=== PATIENT | female | born 1995 | race African-American/Black ===

== ENCOUNTER 2021-02-23 16:36 | Emergency (ER) | payer BC, OTHER ==
[2021-02-23 18:18] LABS: Bilirubin Neg (Negative); Blood, Urine 25 (Negative); Clarity Clear (Clear); Glucose, Urine (Dipstick) Normal (Negative); Ketone, Urine Negative (Negative); Leukocyte 25 (Negative); Nitrite Negative (Negative); Protein, Urine (Dipstick) 15 mg/dl (Neg-Trace); Specific Gravity, Urine 1.025 (1.002-1.036); Urobilinogen Normal mg/dL (Less than 2)
[2021-02-23 18:21] LABS: Pregnancy Test - Urine (BHCG) Negative (Negative); Pregu Control Background? CLEAR/WHITE (CLR/WHITE); Pregu Control Bar Appear? YES (CONTROL BAR); Specific Gravity 1.025 (1.002-1.036)
[2021-02-23 18:34] LABS: Bacteria/HPF 1+ HPF (None Seen); Mucous/LPF 2+ LPF (<2+); Squamous Epithelial 0-3 HPF (0-3)
== END 2021-02-23 19:51 | disposition home or self-care (01) ==
LOC: CSHERS 16:36
DX: R11.2 Nausea with vomiting, unspecified (principal); R19.7 Diarrhea, unspecified
CPT/HCPCS: 81003; 81015; 81025; 87086; 99284

== ENCOUNTER 2021-08-07 09:34 | Emergency (ER) | payer BC, OTHER ==
[2021-08-08 12:38] LABS: SARS-CoV-2 PCR by NAA DETECTED (NotDetected)
== END 2021-08-07 12:44 | disposition home or self-care (01) ==
LOC: CSHERS 09:34
DX: U07.1 COVID-19 (principal); J30.9 Allergic rhinitis, unspecified
CPT/HCPCS: 99283; U0003; U0005

== ENCOUNTER 2022-10-08 18:05 | Emergency (ER) | payer OTHER | END 2022-10-08 22:06 | disposition left against medical advice (07) | LOC: CSHERS 18:05 | DX: Z53.21 Procedure and treatment not carried out due to patient leaving prior to being seen by health care provider (principal) ==

== ENCOUNTER 2022-11-18 23:20 | Emergency (ER) | payer OTHER ==
[2022-11-19 00:55] LABS: #Eosinphils 0.1 10x3/uL (0.0-0.5); #Monocytes 0.4 10x3/uL (0.0-1.1); #Neutrophils 6.4 10x3/uL (1.5-8.4); %Basophils 0.2 % (0.0-2.0); %Eosinophils 0.6 % (0.0-6.0); %Monocytes 4.3 % (0.0-10.0); %Neutrophils 74.7 % (40.0-75.0); Hemoglobin 12.4 g/dL (12.0-15.5); Mean Corpuscular HGB CONC 32.1 g/dL (32.0-36.0); Mean Corpuscular Hemoglobin 25.7 pg (27.0-33.0); Mean Corpuscular Volume 80.1 fl (81.6-98.3); Mean Platelet Volume 9.8 fl (7.4-10.4); Platelet Count 321 10x3/uL (150-450); RBC Distribution Width 14.1 % (11.5-14.5); Red Blood Cell (RBC) Count 4.82 10x6/uL (3.90-5.03); White Blood Cell (WBC) Count 8.6 10x3/uL (3.5-10.5)
[2022-11-19 01:04] LABS: Amphetamine Not Detected (NotDetected); Barbiturates Screen Not Detected (NotDetected); Benzodiazepine Screen Not Detected (NotDetected); Bilirubin 1+ (Negative); Blood, Urine 150 (Negative); Cocaine Metabolite Screen Not Detected (NotDetected); Glucose, Urine (Dipstick) Normal (Negative); Ketone, Urine 15 mg/dL (Negative); Leukocyte 25 (Negative); Methadone Not Detected (NotDetected); Methamphetamine Not Detected (NotDetected); Nitrite Negative (Negative); Opiate Screen Not Detected (NotDetected); Oxycodone Screen Not Detected (NotDetected); Phencyclidine (PCP) Not Detected (NotDetected); Protein, Urine (Dipstick) 30 mg/dl (Neg-Trace); THC/Cannabinoid Screen Not Detected (NotDetected); Tricyclic Screen Not Detected (NotDetected)
[2022-11-19 01:05] LABS: Clarity Slightly Cloudy (Clear)
[2022-11-19 01:06] LABS: Bacteria/HPF 2+ HPF (None Seen); RBC/HPF 0-3 HPF (0-3)
[2022-11-19 01:08] LABS: Pregnancy Test - Urine (BHCG) Negative (Negative)
[2022-11-19 01:09] LABS: Pregu Control Background? CLEAR/WHITE (CLR/WHITE); Pregu Control Bar Appear? YES (CONTROL BAR)
[2022-11-19 01:13] LABS: ALT (SGPT) 17 U/L (8-55); AST (SGOT) 15 U/L (5-34); Acetaminophen Less than 10.0 mcg/mL (10.0-30.0); Albumin 4.1 g/dL (3.5-5.0); Alcohol Less than 10 mg/dL (Less than 10); Alkaline Phosphatase 92 U/L (40-110); Anion Gap 12 mmol/L (10-20); BUN (Urea Nitrogen) 7 mg/dL (7.0-18.7); Bilirubin, Total 0.3 mg/dL (0.2-1.2); Calc. Creatinine Clearance 0 mL/min (70-130); Calcium 9.4 mg/dL (7.8-10.44); Carbon Dioxide 24 mmol/L (22-29); Chloride 108 mmol/L (98-107); Estimated GFR 95; Globulin 3.7 g/dL (2.4-3.5); Glucose 105 mg/dL (70-105); Potassium 3.8 mmol/L (3.5-5.1); Protein, Total 7.8 g/dL (6.0-8.3); Salicylate Less than 8.0 mg/dL (15.0-30.0); Sodium 140 mmol/L (136-145)
== END 2022-11-19 10:14 | disposition home or self-care (01) ==
LOC: CSHERS 23:20
DX: T45.4X2A Poisoning by iron and its compounds, intentional self-harm, initial encounter (principal)
CPT/HCPCS: 36415; 80053; 80306; 80307; 81003; 81015; 81025; 83540; 85025; 93005

== ENCOUNTER 2024-03-03 08:13 | Day surgery (SDC) | payer OTHER, MEDICAID ==
[2024-03-03] MEDS ORDERED: hydrALAZINE 20 MG/ML VIAL SLOW IVP PRN (08:52)
[2024-03-03 14:56] LABS: Bilirubin Neg (Negative); Blood, Urine 10 (Negative); Clarity Clear (Clear); Glucose, Urine (Dipstick) Normal (Negative); Ketone, Urine Negative (Negative); Leukocyte Negative (Negative); Nitrite Negative (Negative); Protein, Urine (Dipstick) Negative (Neg-Trace); Specific Gravity, Urine 1.015 (1.005-1.030); Urobilinogen Normal mg/dL (Less than 2); pH, Urine 6.5 (5.0-9.0)
[2024-03-03 15:39] LABS: Bacteria/HPF None Seen HPF (None Seen); CAUTI Indications for Culture Pregnancy; RBC/HPF 0-3 HPF (0-3); Squamous Epithelial 0-3 HPF (0-3); WBC/HPF 0-3 HPF (0-3)
[2024-03-03 15:40] LABS: Urine Culture Reflex Yes Yes
== END 2024-03-03 09:48 | disposition home or self-care (01) ==
LOC: CSHLD/OP 08:13
PROVIDERS: ATTEND Family Medicine
DX: O99.891 Other specified diseases and conditions complicating pregnancy (principal); M54.50 Low back pain, unspecified; O34.211 Maternal care for low transverse scar from previous cesarean delivery; O00.01 Abdominal pregnancy with intrauterine pregnancy; Z79.899 Other long term (current) drug therapy; Z3A.23 23 weeks gestation of pregnancy
CPT/HCPCS: 81001; 87086; 99283

== ENCOUNTER 2024-06-01 12:26 | Day surgery (SDC) | payer OTHER ==
[2024-06-01] MEDS ORDERED: hydrALAZINE 20 MG/ML VIAL SLOW IVP PRN (13:30)
[2024-06-01 13:55] LABS: Fetal Membranes Rupture No Membranes Rupture (No Rupture)
== END 2024-06-01 16:58 | disposition home or self-care (01) ==
LOC: CSHERS 12:26
PROVIDERS: ATTEND Family Medicine
DX: O47.03 False labor before 37 completed weeks of gestation, third trimester (principal); Z3A.36 36 weeks gestation of pregnancy; O34.211 Maternal care for low transverse scar from previous cesarean delivery; O98.813 Other maternal infectious and parasitic diseases complicating pregnancy, third trimester; B37.31 Acute candidiasis of vulva and vagina; Z03.71 Encounter for suspected problem with amniotic cavity and membrane ruled out
CPT/HCPCS: 76819; 84112; 87480; 87510; 87660; 99284

== ENCOUNTER 2024-06-03 19:32 | Inpatient (IN) | payer OTHER ==
[2024-06-03 19:45] VITALS: BMI 45.9
[2024-06-03] MEDS ORDERED: hydrALAZINE 20 MG/ML VIAL SLOW IVP PRN ×2 (19:52→21:51)
[2024-06-03 20:33] LABS: Fetal Membranes Rupture RUPTURE DETECTED (No Rupture)
[2024-06-03] MEDS ORDERED: Bicitra 30 ML UDCUP PO PRN (21:51)
[2024-06-03] MEDS ORDERED: Methylergonovine 0.2 MG/ML VIAL IM PRN (21:51)
[2024-06-03] MEDS ORDERED: Tranexamic Acid 1,000 MG/10 ML VIAL IVP PRN (21:51)
[2024-06-03] MEDS ORDERED: Ondansetron PF 4 MG/2 ML Vial IVP PRN ×3 (21:51→21:58)
[2024-06-03] MEDS ORDERED: Diphenoxylate HCl/Atropine Tablet PO PRN (21:51)
[2024-06-03] MEDS ORDERED: Promethazine HCl 25 MG/ML VIAL IM PRN ×2 (21:51→21:58)
[2024-06-03] MEDS ORDERED: Misoprostol 200 MCG TAB PR PRN (21:51)
[2024-06-03] MEDS ORDERED: Carboprost 250 MCG/ML AMP IM PRN (21:51)
[2024-06-03] MEDS ORDERED: Famotidine/PF 20 mg/2ml Vial SLOW IVP PRN (21:51)
[2024-06-03] MEDS ORDERED: Meperidine HCl/PF 25 MG (1 mL) VIAL SLOW IVP PRN (21:58)
[2024-06-03] MEDS ORDERED: Naloxone HCl 0.4 mg/ml Vial IV PRN (21:58)
[2024-06-03] MEDS ORDERED: Naloxone HCl 0.4 mg/ml Vial IVP PRN ×2 (21:58)
[2024-06-03] MEDS ORDERED: fentaNYL 50 mcg/mL 1 mL Vial SLOW IVP PRN (21:58)
[2024-06-03] MEDS ORDERED: Moisturizing Cream (Eucerin) 113 GM JAR TOP PRN (21:58)
[2024-06-03] MEDS ORDERED: Morphine 4 MG/ML VIAL SLOW IVP PRN (21:58)
[2024-06-03] MEDS ORDERED: Azithromycin 500 MG in Sodium Chloride 0.9% 250 ML 250 ML IVPB SCH (22:00)
[2024-06-03] MEDS ORDERED: Ketorolac Tromethamine 30 MG (1 mL) VIAL IVP SCH (22:00)
[2024-06-03] MEDS ORDERED: Oxytocin 30 units/NS 500 ML 500 ML IV SCH (22:00)
[2024-06-03] MEDS ORDERED: Communication Order-Pharmacy FS SCH (22:00)
[2024-06-03] MEDS ORDERED: CEFAZOLIN 2 GM in Sodium Chloride 0.9% 100 ML IVPB SCH (22:00)
[2024-06-03 22:14] LABS: Hematocrit 34.3 % (34.9-44.5); Hemoglobin 11.2 g/dL (12.0-15.5); Mean Corpuscular HGB CONC 32.7 g/dL (32.0-36.0); Mean Corpuscular Hemoglobin 25.6 pg (27.0-33.0); Mean Corpuscular Volume 78.3 fL (81.6-98.3); Mean Platelet Volume 9.2 fL (7.4-10.4); Platelet Count 257 10x3/uL (150-450); RBC Distribution Width 13.8 % (11.5-14.5); Red Blood Cell (RBC) Count 4.38 10x6/uL (3.90-5.03); White Blood Cell (WBC) Count 7.7 10x3/uL (3.5-10.5)
[2024-06-03 23:07] LABS: Syphilis Antibody Nonreactive (Nonreactive); Syphilis Antibody Index 0.08 S/CO (<1.00 Non-Reactive)
[2024-06-03 23:08] LABS: HBsAg Index 0.16 S/CO (0-0.99); Hep B Surf Ag - L&D Non-Reactive S/CO (NonReactive)
[2024-06-04] MEDS: diphenhydrAMINE 50 MG/ML VIAL ONE (00:12)
[2024-06-04] MEDS: CEFAZOLIN 2 GM VIAL ONE (00:12)
[2024-06-04] MEDS: Azithromycin 500 MG VIAL ONE (00:12)
[2024-06-04] MEDS: Dexamethasone 10 MG/ML VIAL ONE (00:12)
[2024-06-04] MEDS: Oxytocin 10 UNITS/ML VIAL ONE (00:12)
[2024-06-04] MEDS: Ondansetron PF 4 MG/2 ML Vial ONE (00:12)
[2024-06-04] MEDS: Morphine PF 10 MG/10 ML VIAL ONE (00:12)
[2024-06-04] MEDS: diphenhydrAMINE 50 MG/ML VIAL IVP PRN (00:46)
[2024-06-04] MEDS: Ketorolac Tromethamine 30 MG (1 mL) VIAL IVP PRN (00:47)
[2024-06-04] MEDS ORDERED: Lanolin Ointment 7 GM TUBE TOP PRN (00:59)
[2024-06-04] MEDS ORDERED: Meperidine HCl/PF 25 MG (1 mL) VIAL IM PRN (00:59)
[2024-06-04] MEDS ORDERED: hydrALAZINE 20 MG/ML VIAL SLOW IVP PRN (00:59)
[2024-06-04] MEDS ORDERED: Promethazine HCl 25 MG/ML VIAL IM PRN (00:59)
[2024-06-04] MEDS ORDERED: Ondansetron PF 4 MG/2 ML Vial IVP PRN (00:59)
[2024-06-04] MEDS ORDERED: Bisacodyl 10 MG SUPP PR PRN (00:59)
[2024-06-04] MEDS ORDERED: Eucerin (Mineral Oil/Petrolatum,White) 30 gm Jar TOP PRN (02:36)
[2024-06-04] MEDS: Moisturizing Cream (Eucerin) 113 GM JAR TOP PRN (02:54)
[2024-06-04 04:46] LABS: Hematocrit 35.6 % (34.9-44.5); Mean Corpuscular HGB CONC 30.9 g/dL (32.0-36.0); Mean Corpuscular Hemoglobin 24.8 pg (27.0-33.0); Mean Corpuscular Volume 80.2 fL (81.6-98.3); Mean Platelet Volume 9.4 fL (7.4-10.4); Platelet Count 230 10x3/uL (150-450); RBC Distribution Width 13.8 % (11.5-14.5); Red Blood Cell (RBC) Count 4.44 10x6/uL (3.90-5.03)
[2024-06-04] MEDS: Ketorolac Tromethamine 30 MG (1 mL) VIAL IVP SCH (05:30)
[2024-06-04] MEDS: Prenatal Vitamin 1 TAB PO SCH (08:17)
[2024-06-04] MEDS: Docusate 100 MG CAP PO SCH (08:17)
[2024-06-04] MEDS: Ferrous Sulfate 325 MG TAB PO SCH (09:00)
[2024-06-04] MEDS: diphenhydrAMINE 25 MG CAP PO PRN (12:15)
[2024-06-04] MEDS: HYDROcodone/Acetaminophen 5/325 mg Tablet PO PRN (17:05)
[2024-06-05] MEDS: Ibuprofen 800 MG TAB PO SCH (05:27)
[2024-06-05] MEDS: HYDROcodone/Acetaminophen 5/325 mg Tablet PO PRN (16:05)
[2024-06-05 20:14] VITALS: TEMP 97.5
[2024-06-06] MEDS: Boostrix 0.5 ML (Tdap) VIAL (>/=7 yrs of age) IM ONE (07:14)
[2024-06-06 09:28] VITALS: BP 115/68
[2024-06-06] MEDS: Simethicone Chewable 80 MG TAB PO PRN (09:59)
== END 2024-06-06 16:45 | disposition home or self-care (01) | DRG 786 ==
LOC: CSHLD/OP 19:32 → CSHLD 20:35 → CSHPP 06-04 01:40
PROVIDERS: ADMIT Family Medicine; ATTEND Family Medicine
PROC: 10D00Z1 Extraction of Products of Conception, Low, Open Approach (ICD-10-PCS; principal; 2024-06-03)
DX: O42.913 Preterm premature rupture of membranes, unspecified as to length of time between rupture and onset of labor, third trimester (principal); O60.14X0 Preterm labor third trimester with preterm delivery third trimester, not applicable or unspecified; O99.214 Obesity complicating childbirth; E66.9 Obesity, unspecified; Z79.82 Long term (current) use of aspirin; Z79.899 Other long term (current) drug therapy; Z3A.36 36 weeks gestation of pregnancy; O34.211 Maternal care for low transverse scar from previous cesarean delivery; Z37.0 Single live birth
CPT/HCPCS: 36415; 51702; 76819; 84112; 85027; 86780; 86850; 86900; 86901; 87340; 99285; J1100; J1200; J1885; J2274; J2405; J2590